=== PATIENT | female | born 1965 | race Caucasian/White ===

== ENCOUNTER → 2017-02-05 | Outpatient (CLI) | payer OTHER | LOC: FIMAGING 11:31 | PROVIDERS: ATTEND Obstetrics & Gynecology | DX: Z12.31 Encounter for screening mammogram for malignant neoplasm of breast (principal) | CPT/HCPCS: G0202 ==

== ENCOUNTER 2017-03-25 20:13 | Observation (INO) | payer OTHER ==
[2017-03-25 20:48] LABS: % IMMATURE GRANULYOCYTES 0.4 % (0.0-1.1); ABSOLUTE IMMATURE GRANULOCYTES 0.07 10^3/uL (0.00-0.10); ADD DIFF? NO; ADD MORPH? NO; ADD SCAN? NO; ATYPICAL LYMPHOCYTE FLAG 10 (0-99); FRAGMENT RBC FLAG 20 (0-99); HEMATOCRIT 26.2 % (38.0-47.0); HEMOGLOBIN 8.3 g/dL (12.6-16.3); LEFT SHIFT FLG 0 (0-99); LIPEMIA HEMOLYSIS FLAG 80 (0-99); MEAN CELL HEMOGLOBIN 26.5 pg (27.9-34.1); MEAN CELL HEMOGLOBIN CONCENTR. 31.7 g/dL (32.4-36.7); MEAN CELL VOLUME 83.7 fL (81.5-99.8); MEAN PLATELET VOLUME 12.7 fL (8.7-11.7); PLATELET CLUMPS FLAG 10 (0-99); PLATELET COUNT 243 10^3/uL (150-400); RED BLOOD CELL COUNT 3.13 10^6/uL (4.18-5.33); RED CELL DISTRIBUTION WIDTH 17.8 % (11.5-15.2)
[2017-03-25 20:59] LABS: ANION GAP 14 mEq/L (8-16); CALCIUM 8.4 mg/dL (8.5-10.4); CARBON DIOXIDE 21 mEq/l (22-31); CHLORIDE 106 mEq/L (97-110); CREATININE 0.7 mg/dL (0.6-1.0); GLOMERULAR FILTRATION RATE > 60; GLUCOSE 117 mg/dL (70-100); POTASSIUM 3.4 mEq/L (3.5-5.2); SODIUM 141 mEq/L (134-144)
--- NOTE | 2017-03-25 21:00 | EDPHY ---
HPI/HX/ROS/PE/MDM Narrative: CHIEF COMPLAINT: Nausea HPI: This patient is a 51 year old female who presents to the Emergency Department following an episode of black, coffee ground hematemesis and one episode of black stool this evening. She reports that she has had intermittent episodes of lightheadedness and nausea over the past few days increasing in severity and frequency. She also reports a feeling of fullness to the epigastric region of her abdomen throughout the past few days. She denies any additional complaints; no urinary complaints, fever or chills, or headache. She denies pertinent medical history. No history of GI bleeding. REVIEW OF SYSTEMS: Aside from elements discussed in the HPI, a comprehensive 10-point review of systems was reviewed and is negative. PMH: Migraines. C-sections. SOCIAL HISTORY: Drinks alcohol rarely. No tobacco use. Recently moved to [place] ; friends visiting from out-of-town are at bedside. PHYSICAL EXAM: General:Patient is alert and in no acute distress. ENT:Eyes are normal to inspection. ENT inspection normal. Neck: Normal inspection. Full range of motion. Respiratory:No respiratory distress. Breath sounds normal bilaterally. Cardiovascular: Regular rate and rhythm. Strong peripheral pulses. Normal cap refill. Abdomen:The abdomen is nontender to palpation. There are no peritoneal signs. There are normal bowel sounds. Back: Normal to inspection. No tenderness to palpation. Skin: Pale. No rash. Warm and dry. Extremities: Normal appearance. Full range of motion. Neuro: Oriented x3. Normal motor function. Normal sensory function. ED Course: This normally healthy 51-year-old female presents with complaints of episodic nausea and lightheadedness over the past three days and one episode each of black stools and black, coffee ground hematemesis today. Upon arrival, she appears pale and is tachycardic at 124, though she is resting comfortably and has a nontender abdomen. Plan for IV and labs. Labs obtained. The patient is anemic: Hemoglobin decreased at 8.3 as compared to 11.3 in January. Hematocrit decreased to 26.2 as compared to 36.2 in January. Will proceed with blood type and screen pending admission. IV established. 2L IV NS and 40mg IV Pantoprazole administered. I discussed with the patient that her labs are suggestive of an acute GI bleed that will require admission for further evaluation by gastroenterology. She is agreeable to this. Heart rate has improved to 79 following administration of fluids. 2121: Consultation with Dr. Davenport, life advisor, who is aware of the case and will consult following admission. 2125: Consultation with Dr. Yenifer King, hospitalist, who accepts admission. MDM: This patient presents with severe likely upper GI bleed. She is hemodynamically stable and responding well to IV fluids. She requires hospitalization for volume replacement and urgent endoscopy. - Data Points Laboratory Results: Laboratory Results 03/25/17 20:36 03/25/17 20:36 03/25/17 03/25/17 03/25/17 20:36 20:36 20:36 WBC RBC Hgb Hct MCV MCH MCHC RDW Plt Count MPV Neut % (Auto) Lymph % (Auto) Garvin % (Auto) Eos % (Auto) Baso % (Auto) Nucleat RBC Rel Count Absolute Neuts (auto) Absolute Lymphs (auto) Absolute Monos (auto) Absolute Eos (auto) Absolute Basos (auto) Absolute Nucleated RBC Immature Gran % Immature Gran # PT 14.8 SEC SEC (12.0-15.0) INR 1.16 (0.83-1.16) APTT 23.8 SEC SEC (23.0-38.0) Sodium Potassium Chloride Carbon Dioxide Anion Gap BUN Creatinine Estimated GFR Glucose Calcium Total Bilirubin 0.6 mg/dL mg/dL (0.1-1.4) Conjugated Bilirubin 0.3 mg/dL mg/dL (0.0-0.5) Unconjugated Bilirubin 0.3 mg/dL mg/dL (0.0-1.1) AST 24 IU/L IU/L (14-46) ALT 21 IU/L IU/L (9-52) Alkaline Phosphatase 36 IU/L L IU/L (38-126) Total Protein 6.3 g/dL g/dL (6.3-8.2) Albumin 3.9 g/dL g/dL (3.5-5.0) Lipase 58.0 IU/L IU/L (23-300) Beta HCG, Qual Patient ABO/Rh Pending Antibody Screen Pending 03/25/17 03/25/17 03/25/17 20:36 20:36 20:36 WBC 15.94 10^3/uL H 10^3/uL (3.80-9.50) RBC 3.13 10^6/uL L 10^6/uL (4.18-5.33) Hgb 8.3 g/dL L g/dL (12.6-16.3) Hct 26.2 % L % (38.0-47.0) MCV 83.7 fL fL (81.5-99.8) MCH 26.5 pg L pg (27.9-34.1) MCHC 31.7 g/dL L g/dL (32.4-36.7) RDW 17.8 % H % (11.5-15.2) Plt Count 243 10^3/uL 10^3/uL (150-400) MPV 12.7 fL H fL (8.7-11.7) Neut % (Auto) 78.9 % H % (39.3-74.2) Lymph % (Auto) 15.7 % % (15.0-45.0) Garvin % (Auto) 3.9 % L % (4.5-13.0) Eos % (Auto) 0.7 % % (0.6-7.6) Baso % (Auto) 0.4 % % (0.3-1.7) Nucleat RBC Rel Count 0.0 % % (0.0-0.2) Absolute Neuts (auto) 12.58 10^3/uL H 10^3/uL (1.70-6.50) Absolute Lymphs (auto) 2.50 10^3/uL 10^3/uL (1.00-3.00) Absolute Monos (auto) 0.62 10^3/uL 10^3/uL (0.30-0.80) Absolute Eos (auto) 0.11 10^3/uL 10^3/uL (0.03-0.40) Absolute Basos (auto) 0.06 10^3/uL 10^3/uL (0.02-0.10) Absolute Nucleated RBC 0.00 10^3/uL 10^3/uL (0-0.01) Immature Gran % 0.4 % % (0.0-1.1) Immature Gran # 0.07 10^3/uL 10^3/uL (0.00-0.10) PT INR APTT Sodium 141 mEq/L mEq/L (134-144) Potassium 3.4 mEq/L L mEq/L (3.5-5.2) Chloride 106 mEq/L mEq/L (97-110) Carbon Dioxide 21 mEq/l L mEq/l (22-31) Anion Gap 14 mEq/L mEq/L (8-16) BUN 50 mg/dL H mg/dL (7-23) Creatinine 0.7 mg/dL mg/dL (0.6-1.0) Estimated GFR > 60 Glucose 117 mg/dL H mg/dL (70-100) Calcium 8.4 mg/dL L mg/dL (8.5-10.4) Total Bilirubin Conjugated Bilirubin Unconjugated Bilirubin AST ALT Alkaline Phosphatase Total Protein Albumin Lipase Beta HCG, Qual NEGATIVE Patient ABO/Rh Antibody Screen Medications Given: Discontinued Medications Sodium Chloride (Ns) 1,000 mls @ 0 mls/hr IV ONCE ONE PRN Reason: Wide Open Stop: 03/25/17 21:04 Last Admin: 03/25/17 20:36 Dose: 1,000 mls General Time Seen by Provider: 03/25/17 20:53 Initial Vital Signs: Initial Vital Signs Temperature (C) 36.4 C 03/25/17 20:16 Heart Rate 124 H 03/25/17 20:16 Respiratory Rate 16 03/25/17 20:16 Blood Pressure 98/56 L 03/25/17 20:16 O2 Sat (%) 100 03/25/17 20:16 O2 Delivery Mode Room Air Allergies/Adverse Reactions: hydrocodone Allergy (Verified 03/25/17 20:19) Penicillins Allergy (Verified 03/25/17 20:19) tetanus and diphtheria toxoids Allergy (Verified 03/25/17 20:19) Home Medications: Medication Instructions Recorded Cholecalciferol Vit D3 [Vitamin D3 1,000 units PO DAILY 03/25/17 (*)] Eletriptan HBr [Relpax] 40 mg PO DAILY PRN 03/25/17 Ferrous Gluconate 324 mg PO DAILY 03/25/17 Naproxen Sod/Diphenhydramine 1 each PO HS PRN 03/25/17 [Aleve Pm Caplet] Naproxen Sodium [Aleve 220 MG (*)] 220 mg PO DAILY 03/25/17 Departure - Departure Disposition: [facility] Inpatient Acute Clinical Impression: GI bleed Qualifiers: GI bleed type/associated pathology: unspecified gastrointestinal hemorrhage type Qualified Code(s): K92.2 - Gastrointestinal hemorrhage, unspecified Condition: Fair Report Scribed for: Raymon Angel Report Scribed by: Gisel Beverly Date of Report: 03/25/17 Time of Report: 20:57 Physician Review and Approval Statement: Portions of this note were transcribed by an ED scribe. I personally performed the history, physical exam, and medical decision making; and confirm the accuracy of the information in the transcribed note.
[2017-03-25] MEDS ORDERED: NS 1,000 ML IV ONE ×2 (21:03→21:12)
[2017-03-25 21:16] LABS: ALBUMIN 3.9 g/dL (3.5-5.0); BILIRUBIN,TOTAL 0.6 mg/dL (0.1-1.4); BILIRUBIN-CONJUGATED 0.3 mg/dL (0.0-0.5); BILIRUBIN-UNCONJUGATED 0.3 mg/dL (0.0-1.1); TOTAL PROTEIN 6.3 g/dL (6.3-8.2)
[2017-03-25 21:19] LABS: INR 1.16 (0.83-1.16); PROTIME(PATIENT) 14.8 SEC (12.0-15.0)
[2017-03-25 21:20] LABS: APTT 23.8 SEC (23.0-38.0)
[2017-03-25] MEDS ORDERED: PANTOPRAZOLE SODIUM 80 MG in NS 100 ML IV ONE ×2 (21:21→22:00)
[2017-03-25] MEDS ORDERED: ONDANSETRON 4 MG/2 ML VIAL IVP PRN (22:45)
[2017-03-25] MEDS ORDERED: PROTOCOL MAGNESIUM 1 DOSE IV PRN (22:47)
[2017-03-25] MEDS ORDERED: PROTOCOL POTASSIUM 1 DOSE MISC PRN (22:47)
--- NOTE | 2017-03-25 22:59 | PDGENHP ---
History and Physical - Chief Complaint melena, coffee ground emesis - History of Present Illness Patient is a 51 year old female with no significant pmh who presents to the ED with complaint of dizziness and black stool. Patient states she began to feel unwell about 2 days ago, with generalized fatigue, epigastric bloating/ discomfort and bloating. Over the course of that day these symptoms became associated with dizziness, especially when moving from a sitting to standing position and nausea. All of these symptoms progressed through yesterday and today at around 4pm, she had a moderately large volume tarry black stool. Immediately following this she also had one episode of black/coffee ground emesis. She then felt an intense dizziness, clammy, cold, and was able to get back into her bed without actually passing out/syncopizing. Her friend then came to her house, found her feeling very weak and dizzy, so they came to the ED for further evaluation. Patient does report intermittent aleve use for musculoskeletal pain relief. She reports increased use (2 tablets twice a day) over the past 2 days for new foot pain, but prior to this had only had 1-2 tablets once a week. She reports very rare alcohol use, none recently. She has had a normal colonoscopy within the last 1 year, but has never had an EGD. On arrival to the ED, patient was afebrile, but tachycardic and slightly hypotensive. She was given 3 L NS IVF resuscitation with improvement in her VS. Labs were then obtained and were significant for anemia (Hb had dropped about 3 g from previous labs in 01/2017), elevated BUN, normal coags. Abdominal x-ray was unremarkable. She was initiated on a PPI drip and admitted for further management. History Information - Allergies/Home Medication List Allergies/Adverse Reactions: hydrocodone Allergy (Verified 03/25/17 20:19) Penicillins Allergy (Verified 03/25/17 20:19) tetanus and diphtheria toxoids Allergy (Verified 03/25/17 20:19) Home Medications: Cholecalciferol Vit D3 [Vitamin D3 (*)] 1,000 units PO DAILY 03/25/17 [Last Taken 03/22/17] Eletriptan HBr [Relpax] 40 mg PO DAILY PRN 03/25/17 [Last Taken Unknown] Ferrous Gluconate 324 mg PO DAILY 03/25/17 [Last Taken 03/22/17] Naproxen Sod/Diphenhydramine [Aleve Pm Caplet] 1 each PO HS PRN 03/25/17 [Last Taken 03/23/17] Naproxen Sodium [Aleve 220 MG (*)] 220 mg PO DAILY 03/25/17 [Last Taken 03/25/17 ] I have personally reviewed and updated: family history, medical history, social history, surgical history - Past Medical History Additional medical history: Raynaud's - Surgical History Additional surgical history: several orthopedic surgeries. x 2. fibroidectomy - Family History Additional family history: MGF: CHF - Social History Smoking Status: Never smoked Alcohol Use: Rarely Drug Use: None Additional social history: Patient recently moved to [place] from [place]. Currently lives alone, has 2 children. Review of Systems ROS: 10pt was reviewed & negative except for what was stated in HPI & below Physical Exam Temp Pulse Resp BP Pulse Ox 36.4 C 84 18 105/73 100 03/25/17 20:16 03/25/17 22:28 03/25/17 22:28 03/25/17 22:28 03/25/17 22:28 Constitutional: no apparent distress, appears nourished, not in pain, other ( appears pale) Eyes: PERRL, anicteric sclera, EOMI, pale conjunctiva Ears, Nose, Mouth, Throat: moist mucous membranes, hearing normal, ears appear normal, no oral mucosal ulcers Cardiovascular: regular rate and rhythym, no murmur, rub, or gallop, pulses symmetric bilaterally, tachycardia, No JVD, No edema Peripheral Pulses: 2+: dorsalis-pedis (R), dorsalis-pedis (L) Respiratory: no respiratory distress, no rales or rhonchi, clear to auscultation Gastrointestinal: normoactive bowel sounds, soft, non-tender abdomen, no palpable masses Genitourinary: no bladder fullness, no bladder tenderness Skin: warm, normal color, no rashes or abrasions, no fluctuance, no induration, No mottled Musculoskeletal: full muscle strength, no muscle tenderness, normal joint ROM, no joint effusions Neurologic: AAOx3, sensation intact bilaterally, CN II-XII Intact, No weakness, No numbness, No facial droop Psychiatric: interacting appropriately, not anxious, not encephalopathic, thought process linear Lab Data & Imaging Review 03/25/17 20:36 03/25/17 20:36 WBC 15.94 10^3/uL (3.80-9.50) H 03/25/17 20:36 RBC 3.13 10^6/uL (4.18-5.33) L 03/25/17 20:36 Hgb 8.3 g/dL (12.6-16.3) L 03/25/17 20:36 Hct 26.2 % (38.0-47.0) L 03/25/17 20:36 MCV 83.7 fL (81.5-99.8) 03/25/17 20:36 MCH 26.5 pg (27.9-34.1) L 03/25/17 20:36 MCHC 31.7 g/dL (32.4-36.7) L 03/25/17 20:36 RDW 17.8 % (11.5-15.2) H 03/25/17 20:36 Plt Count 243 10^3/uL (150-400) 03/25/17 20:36 MPV 12.7 fL (8.7-11.7) H 03/25/17 20:36 Neut % (Auto) 78.9 % (39.3-74.2) H 03/25/17 20:36 Lymph % (Auto) 15.7 % (15.0-45.0) 03/25/17 20:36 Mcnairy % (Auto) 3.9 % (4.5-13.0) L 03/25/17 20:36 Eos % (Auto) 0.7 % (0.6-7.6) 03/25/17 20:36 Baso % (Auto) 0.4 % (0.3-1.7) 03/25/17 20:36 Nucleat RBC Rel Count 0.0 % (0.0-0.2) 03/25/17 20:36 Absolute Neuts (auto) 12.58 10^3/uL (1.70-6.50) H 03/25/17 20:36 Absolute Lymphs (auto) 2.50 10^3/uL (1.00-3.00) 03/25/17 20:36 Absolute Monos (auto) 0.62 10^3/uL (0.30-0.80) 03/25/17 20:36 Absolute Eos (auto) 0.11 10^3/uL (0.03-0.40) 03/25/17 20:36 Absolute Basos (auto) 0.06 10^3/uL (0.02-0.10) 03/25/17 20:36 Absolute Nucleated RBC 0.00 10^3/uL (0-0.01) 03/25/17 20:36 Immature Gran % 0.4 % (0.0-1.1) 03/25/17 20:36 Immature Gran # 0.07 10^3/uL (0.00-0.10) 03/25/17 20:36 PT 14.8 SEC (12.0-15.0) 03/25/17 20:36 INR 1.16 (0.83-1.16) 03/25/17 20:36 APTT 23.8 SEC (23.0-38.0) 03/25/17 20:36 Sodium 141 mEq/L (134-144) 03/25/17 20:36 Potassium 3.4 mEq/L (3.5-5.2) L 03/25/17 20:36 Chloride 106 mEq/L (97-110) 03/25/17 20:36 Carbon Dioxide 21 mEq/l (22-31) L 03/25/17 20:36 Anion Gap 14 mEq/L (8-16) 03/25/17 20:36 BUN 50 mg/dL (7-23) H 03/25/17 20:36 Creatinine 0.7 mg/dL (0.6-1.0) 03/25/17 20:36 Estimated GFR > 60 03/25/17 20:36 Glucose 117 mg/dL (70-100) H 03/25/17 20:36 Calcium 8.4 mg/dL (8.5-10.4) L 03/25/17 20:36 Total Bilirubin 0.6 mg/dL (0.1-1.4) 03/25/17 20:36 Conjugated Bilirubin 0.3 mg/dL (0.0-0.5) 03/25/17 20:36 Unconjugated Bilirubin 0.3 mg/dL (0.0-1.1) 03/25/17 20:36 AST 24 IU/L (14-46) 03/25/17 20:36 ALT 21 IU/L (9-52) 03/25/17 20:36 Alkaline Phosphatase 36 IU/L (38-126) L 03/25/17 20:36 Total Protein 6.3 g/dL (6.3-8.2) 03/25/17 20:36 Albumin 3.9 g/dL (3.5-5.0) 03/25/17 20:36 Lipase 58.0 IU/L (23-300) 03/25/17 20:36 Beta HCG, Qual NEGATIVE 03/25/17 20:36 Patient ABO/Rh O POSITIVE 03/25/17 20:36 Antibody Screen NEGATIVE 03/25/17 20:36 Crossmatch IS Only See Detail 03/25/17 20:36 Visualized and Interpreted imaging results: Yes Interpretation: AXR: no evidence of free air/perforation Assessment & Plan Assessment: Patient is a 51 year old female with no significant pmh who presents to the ED with complaint of dizziness, fatigue, dyspepsia and one episode of melena and coffee ground emesis. ED evaluation reveals tachycardia, anemia, consistent with acute likely upper GI bleed. Plan: # acute upper GI bleed On arrival patient was initially symptomatic, with tachycardia and hypotension. This has improved with IVF resuscitation, however, she still feels quiet weak and is orthostatic. Will transfuse 1 unit prbc now. GI has been consulted and will plan for EGD evaluation in AM. - NPO - follow CBC q4h - maintain adequate IV access - cont Pantoprazole gtt - f/u GI recs # acute blood loss anemia Likely due to above. Will transfuse and monitor cbc q4h. # leukocytosis Although patient meets SIRS criteria with tachycardia and leukocytosis on presentation, there is no sign of infection; likely the result of acute blood loss anemia/reactive leukocytosis. Will trend cbc, monitor for localizing signs of infection. # hypokalemia Replete per protocol. # dispo: admit to observation status # gen; NPO DVT ppx: low risk Full code
[2017-03-25] MEDS: PANTOPRAZOLE SODIUM 80 MG in NS 100 ML IV SCH (23:48)
[2017-03-26] MEDS: POTASSIUM Cl (KCl) 100 ML IV SCH ×3 (00:11→04:00)
[2017-03-26 00:48] LABS: % IMMATURE GRANULYOCYTES 0.6 % (0.0-1.1); ABSOLUTE IMMATURE GRANULOCYTES 0.07 10^3/uL (0.00-0.10); ADD DIFF? NO; ADD MORPH? YES; ADD SCAN? NO; ATYPICAL LYMPHOCYTE FLAG 0 (0-99); FRAGMENT RBC FLAG 20 (0-99); HEMATOCRIT 19.6 % (38.0-47.0); HEMOGLOBIN 6.4 g/dL (12.6-16.3); LEFT SHIFT FLG 0 (0-99); LIPEMIA HEMOLYSIS FLAG 80 (0-99); MEAN CELL HEMOGLOBIN CONCENTR. 32.7 g/dL (32.4-36.7); MEAN CELL VOLUME 82.7 fL (81.5-99.8); MEAN PLATELET VOLUME 12.9 fL (8.7-11.7); PLATELET CLUMPS FLAG 0 (0-99); PLATELET COUNT 161 10^3/uL (150-400); RED BLOOD CELL COUNT 2.37 10^6/uL (4.18-5.33)
[2017-03-26 01:24] LABS: HYPOCHROMIA 1+; PLATELET ESTIMATE ADEQUATE (ADEQ); POLYCHROMASIA 1+; TOXIC GRANULATION PRESENT
[2017-03-26] MEDS: PANTOPRAZOLE SODIUM 80 MG in NS 100 ML IV SCH (04:00)
[2017-03-26] MEDS ORDERED: ALBUMIN 5% 250 ML BOTTLE IV ONE (09:29)
[2017-03-26] MEDS ORDERED: CALCIUM CHLORIDE 1 GM/10 ML INJ ONE (09:29)
[2017-03-26] MEDS ORDERED: PROPOFOL 200 MG/20 ML VIAL ONE (09:30)
[2017-03-26] MEDS ORDERED: MIDAZOLAM 2 MG/2 ML VIAL ONE (09:35)
[2017-03-26] MEDS ORDERED: METOCLOPRAMIDE 10 MG/2 ML VIAL ONE (09:59)
[2017-03-26] MEDS ORDERED: ROCURONIUM 50 MG/5 ML VIAL ONE (09:59)
[2017-03-26] MEDS ORDERED: LIDOCAINE 2% 5 ML SDV ONE (09:59)
[2017-03-26] MEDS ORDERED: ONDANSETRON 4 MG/2 ML VIAL ONE (09:59)
[2017-03-26] MEDS ORDERED: fentaNYL 100 MCG/2 ML INJ ONE (09:59)
[2017-03-26] MEDS ORDERED: SUGAMMADEX SODIUM 200 MG/2 ML VIAL IVP ONE (09:59)
--- NOTE | 2017-03-26 11:40 | HOSPPROG ---
Hospitalist Progress Note Assessment/Plan: 51 yo f w UGIB 2/2 gastric ulcers UGIB: trigger likely NSAIDS minimal alcohol, no tobacco no active bleeding on egd change to bid oral ppi clear liquid diet acute blood loss anemia: give add'l unit packed red cells HD stable chronic anemia: baseline hg 11 outpt workup proph: scd's and ppi active bleeding precludes LMWH dispo: pending Subjective: case discussed w bobby fernandez Objective: Vital Signs Temp Pulse Resp BP Pulse Ox 36.6 C 81 17 89/54 L 93 03/26/17 02:08 03/26/17 04:00 03/26/17 04:00 03/26/17 04:00 03/26/17 04:00 03/25/17 03/26/17 03/27/17 05:59 05:59 05:59 Intake Total 2009 Balance 2009 PT 14.8 SEC (12.0-15.0) 03/25/17 20:36 INR 1.16 (0.83-1.16) 03/25/17 20:36 - Physical Exam Constitutional: no apparent distress, appears nourished Eyes: PERRL, anicteric sclera Ears, Nose, Mouth, Throat: moist mucous membranes, hearing normal Cardiovascular: regular rate and rhythym, no murmur, rub, or gallop Respiratory: no respiratory distress, no rales or rhonchi, No inspiratory crackles Gastrointestinal: normoactive bowel sounds, soft, non-tender abdomen, No guarding, No rebound Genitourinary: no bladder fullness, No glover in urethra Skin: warm, normal color Musculoskeletal: full muscle strength Neurologic: AAOx3 ICD10 Worksheet Patient Problems: Problems Problem Status Onset GI bleed Acute
[2017-03-26] MEDS ORDERED: Eletriptan Hbr [Relpax] 40 MG PO PRN (11:41)
[2017-03-26] MEDS ORDERED: PANTOPRAZOLE SODIUM 40 MG TAB PO SCH (11:45)
[2017-03-26] MEDS ORDERED: diphenhydrAMINE 25 MG CAP PO PRN (12:47)
[2017-03-26 14:20] LABS: ALANINE AMINOTRANSFERASE 21 IU/L (9-52); ALBUMIN 2.6 g/dL (3.5-5.0); ALKALINE PHOSPHATASE 28 IU/L (38-126); ANION GAP 9 mEq/L (8-16); ASPARTATE AMINOTRANSFERASE 17 IU/L (14-46); BILIRUBIN,TOTAL 0.8 mg/dL (0.1-1.4); CALCIUM 6.9 mg/dL (8.5-10.4); CARBON DIOXIDE 19 mEq/l (22-31); CHLORIDE 113 mEq/L (97-110); CREATININE 0.7 mg/dL (0.6-1.0); GLOMERULAR FILTRATION RATE > 60; GLUCOSE 82 mg/dL (70-100); MAGNESIUM 1.6 mg/dL (1.6-2.3); SODIUM 141 mEq/L (134-144); TOTAL PROTEIN 4.8 g/dL (6.3-8.2)
[2017-03-26 14:27] LABS: APTT 27.5 SEC (23.0-38.0); INR 1.31 (0.83-1.16); PROTIME(PATIENT) 16.3 SEC (12.0-15.0)
[2017-03-26 14:32] LABS: % IMMATURE GRANULYOCYTES 0.3 % (0.0-1.1); ABSOLUTE IMMATURE GRANULOCYTES 0.03 10^3/uL (0.00-0.10); ADD DIFF? NO; ADD MORPH? NO; ADD SCAN? NO; ATYPICAL LYMPHOCYTE FLAG 0 (0-99); FRAGMENT RBC FLAG 30 (0-99); HEMATOCRIT 22.2 % (38.0-47.0); HEMOGLOBIN 7.2 g/dL (12.6-16.3); LEFT SHIFT FLG 0 (0-99); LIPEMIA HEMOLYSIS FLAG 80 (0-99); MEAN CELL HEMOGLOBIN 27.5 pg (27.9-34.1); MEAN CELL HEMOGLOBIN CONCENTR. 32.4 g/dL (32.4-36.7); MEAN CELL VOLUME 84.7 fL (81.5-99.8); MEAN PLATELET VOLUME 12.5 fL (8.7-11.7); PLATELET CLUMPS FLAG 10 (0-99); PLATELET COUNT 145 10^3/uL (150-400); RED BLOOD CELL COUNT 2.62 10^6/uL (4.18-5.33); RED CELL DISTRIBUTION WIDTH 17.3 % (11.5-15.2)
[2017-03-26 16:03] LABS: HEMATOCRIT 26.6 % (38.0-47.0); HEMOGLOBIN 8.8 g/dL (12.6-16.3)
--- NOTE | 2017-03-26 16:59 | SOAPPROG ---
SOAP Progress Note Assessment/Plan: Assessment:EGD reveals 3 gastric ulcers, one with signs of recent bleeding. Ulcers appear benign. APC apllied to any potential bleeding sites MASON test taken. Plan:Observe for rebleeding. 12 weeks of PPIs. Avoid NSAIDs. 03/26/17 16:58 Objective: Vital Signs Temp Pulse Resp BP Pulse Ox 36.5 C 86 18 114/63 98 03/26/17 12:00 03/26/17 15:44 03/26/17 15:44 03/26/17 15:44 03/26/17 15:44 Laboratory Results 03/26/17 15:51 03/26/17 06:00 03/25/17 03/26/17 03/27/17 05:59 05:59 05:59 Intake Total 2009 140 Output Total 900 Balance 2009 - PT 16.3 SEC (12.0-15.0) H 03/26/17 06:00 INR 1.31 (0.83-1.16) H 03/26/17 06:00 ICD10 Worksheet Patient Problems: Problems Problem Status Onset GI bleed Acute
[2017-03-26] MEDS ORDERED: MAGNESIUM SULF 1 GM/DEXTROSE 100 ML IV ONE (17:15)
[2017-03-26 19:25] LABS: POTASSIUM 4.2 mEq/L (3.5-5.2)
[2017-03-26] MEDS: PANTOPRAZOLE SODIUM 40 MG TAB PO SCH (20:37)
--- NOTE | 2017-03-27 04:11 | GPN ---
[f rep st] PROCEDURE NOTE PROCEDURE PERFORMED: 1. Gastroscopy with argon plasma coagulation. 2. Biopsies. INDICATIONS: The patient is a 51-year-old female, admitted with signs and symptoms of upper GI blee ding, including coffee-grounds emesis, melena, and a hemoglobin drop from a baseline of 11.3 two mon ths ago, to 6.4 on admission. She has been using NSAIDs quite regularly recently. Has no previous history of peptic disease. Gastroscopy is being performed to evaluate. DESCRIPTION OF PROCEDURE: After proper consent was obtained, patient was intubated and placed in th e left lateral decubitus position. Video gastroscope was introduced through the mouth, down esophagus, into stomach, past the pylorus, into the duodenum. FINDINGS: 1. Esophagus normal. 2. Fundus is normal. 3. In the antrum are 3 ulcers between 5-10 mm in diameter. All are with smooth edges and benign in appearance. Two have clean white eschars. The third has some redness in it. 4. The duodenum is normal. Biopsies were taken to rule out Helicobacter pylori, and then argon plasma coagulation was used to c auterize all of the potential bleeding sites and the ulcers. At this point, instrument was removed. The patient tolerated procedure well, and was returned to [facility] in stable condition. RECOMMENDATIONS: 1. Would treat Helicobacter pylori if present. 2. Patient should be on a 12-week course of proton pump inhibitors. 3. Patient should avoid nonsteroidals. 4. If patient has signs and symptoms of rebleeding, this procedure can be repeated. 5. Transfusions as per hospitalist team. 6. Disposition as per hospitalist team. /[id number]/MODL
[2017-03-27] MEDS: ACETAMINOPHEN 325 MG TAB PO PRN ×3 (04:21→17:20)
[2017-03-27] MEDS: ONDANSETRON DISINTEGRATING 4 MG TAB PO PRN ×2 (04:22→11:56)
[2017-03-27 04:34] LABS: % IMMATURE GRANULYOCYTES 0.6 % (0.0-1.1); ABSOLUTE IMMATURE GRANULOCYTES 0.05 10^3/uL (0.00-0.10); ADD DIFF? NO; ADD MORPH? NO; ADD SCAN? NO; ATYPICAL LYMPHOCYTE FLAG 0 (0-99); FRAGMENT RBC FLAG 20 (0-99); HEMATOCRIT 26.7 % (38.0-47.0); HEMOGLOBIN 9.1 g/dL (12.6-16.3); LEFT SHIFT FLG 0 (0-99); LIPEMIA HEMOLYSIS FLAG 90 (0-99); MEAN CELL HEMOGLOBIN 28.1 pg (27.9-34.1); MEAN CELL HEMOGLOBIN CONCENTR. 34.1 g/dL (32.4-36.7); MEAN CELL VOLUME 82.4 fL (81.5-99.8); MEAN PLATELET VOLUME 12.8 fL (8.7-11.7); PLATELET CLUMPS FLAG 10 (0-99); PLATELET COUNT 136 10^3/uL (150-400); RED BLOOD CELL COUNT 3.24 10^6/uL (4.18-5.33)
[2017-03-27 04:43] LABS: MAGNESIUM 1.4 mg/dL (1.6-2.3)
[2017-03-27 07:52] VITALS: PULSE 77; RESP 18
[2017-03-27] MEDS ORDERED: CHOLECALCIFEROL VIT D3 1,000 UNITS TAB PO SCH (09:00)
[2017-03-27] MEDS: PANTOPRAZOLE SODIUM 40 MG TAB PO SCH ×2 (09:22→19:56)
[2017-03-27] MEDS ORDERED: MAGNESIUM SULF 2 GM/WATER 50 ML IV ONE (10:00)
[2017-03-27] MEDS ORDERED: NS 1,000 ML IV ONE (15:19)
[2017-03-27 16:24] LABS: HEMATOCRIT 29.6 % (38.0-47.0); HEMOGLOBIN 9.7 g/dL (12.6-16.3)
[2017-03-27 16:59] VITALS: BP 105/61; TEMP 97.8; O2SAT 97
--- NOTE | 2017-03-27 21:19 | GDS ---
[f rep st] DISCHARGE SUMMARY DISCHARGE DIAGNOSES: 1. Upper gastrointestinal bleed. 2. Posthemorrhagic anemia. 3. Multiple gastric ulcers. 4. 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 CONSULTATIONS: Dr. Yves Dominguez. PROCEDURES: Esophagogastroduodenoscopy and transfusion of packed red cells, 2 units. HOSPITAL COURSE: The patient is a 51-year-old woman who takes ongoing therapy with Aleve. She came in at this time symptomatic from anemia, and having coffee-grounds emesis and black stool. She had an initial hemoglobin of 8, and was hemodynamically stable, but her second hemoglobin was at 6.4. She therefore received 2 units of packed red blood cells, as there was evidence of ongoing bleeding. She had upper endoscopy that showed multiple gastric ulcerations, with some evidence of bleeding. She was treated endoscopically, and with proton-pump inhibitors, and did well thereafter. At this time, she is stable for discharge to home. Has stable hemoglobin, stable hemodynamics, no further s igns of bleeding, is eating a soft diet without difficulty. She is prescribed Protonix 40 mg twice daily for 8 weeks. To follow up with Dr. Dominguez in 6-8 weeks. She is also going to take some iron therapy for iron replacement. /[id number]/MODL
== END 2017-03-27 20:02 | disposition home or self-care (01) ==
LOC: INTOOBSV 21:27 → F2N 22:26 → F3E 03-26 17:17
PROVIDERS: ADMIT Hospitalist; ATTEND Hospitalist
PROC: 0W3P8ZZ Control Bleeding in Gastrointestinal Tract, Via Natural or Artificial Opening Endoscopic (ICD-10-PCS; principal; 2017-03-25)
PROC: 0DB74ZX Excision of Stomach, Pylorus, Percutaneous Endoscopic Approach, Diagnostic (ICD-10-PCS; principal; 2017-03-25)
PROC: 30233N1 Transfusion of Nonautologous Red Blood Cells into Peripheral Vein, Percutaneous Approach (ICD-10-PCS; principal; 2017-03-25)
DX: K92.2 Gastrointestinal hemorrhage, unspecified (principal); D50.0 Iron deficiency anemia secondary to blood loss (chronic); K25.9 Gastric ulcer, unspecified as acute or chronic, without hemorrhage or perforation
CPT/HCPCS: 36430; 43239; 43255; 74000; 96361; 96365; 96366; 99285; G0378; P9016; J2250; J2405; J2704; J2765; J3010; J3475; P9041

== ENCOUNTER 2017-04-13 21:33 | Emergency (ER) | payer OTHER ==
--- NOTE | 2017-04-13 22:50 | EDPHY ---
H & P Stated Complaint: blood in stool x1d, recent GI bleed and cautery ~3wk ago Time Seen by Provider: 04/13/17 22:27 HPI/ROS: HPI The patient presents with bright red blood per rectum which began today. She had about 2-3 episodes of bright red blood when she had bowel movements today. This was not clotted and was surrounding her bowel movements. She has not had any dark stools. These episodes were painless. She does not have any abdominal pain. She denies any lightheadedness. She was admitted to the hospital on March 25 for an upper GI bleed which presented with coffee-ground emesis and dark stools. She was taking Aleve at that time. Upper endoscopy was performed which revealed gastric ulcers which were cauterized. She was started on a PPI and iron supplementation. She did require blood transfusion for a drop in her hemoglobin. She is currently taking iron supplementation in her PPI and denies any NSAID use.. REVIEW OF SYSTEMS Constitutional: No fever, no chills. Eyes: No discharge. ENT: No sore throat. Cardiovascular: No chest pain, no palpitations. Respiratory: No cough, no shortness of breath. Gastrointestinal: No abdominal pain, no vomiting. Genitourinary: No hematuria. Musculoskeletal: No back pain. Skin: No rashes. Neurological: No headache. PMHx: Upper GI bleed, gastric ulcers related to NSAID use, IUD in place Soc Hx: Recently moved from [place] PHYSICAL General Appearance: Alert, no distress Eyes: Pupils equal and round no pallor or injection ENT, Mouth: Mucous membranes moist Respiratory: There are no retractions, lungs are clear to auscultation Cardiovascular: Regular rate and rhythm Gastrointestinal: Abdomen is soft and non-tender, no masses, bowel sounds normal Rectal: Several small external hemorrhoids with no active bleeding, no masses, soft brown stool Neurological: A&O, moves all extremities Skin: Warm and dry, no rashes Musculoskeletal: Neck is supple non tender Extremities: symmetrical, full range of motion Psychiatric: Patient is oriented X 3, there is no agitation Source: Patient Exam Limitations: No limitations - Personal History LMP (Females 10-55): IUD In Place Current Tetanus/Diphtheria Vaccine: Yes Current Tetanus Diphtheria and Acellular Pertussis (TDAP): Yes - Medical/Surgical History Hx Asthma: No Hx Chronic Respiratory Disease: No Hx Diabetes: No Hx Cardiac Disease: No Hx Renal Disease: No Hx Cirrhosis: No Hx Alcoholism: No Hx HIV/AIDS: No Hx Splenectomy or Spleen Trauma: No Other PMH: migraines, utrine fibroids, c section x2, rotator cuff, bicep repair , meniscus tear, Reynaud's - Social History Smoking Status: Never smoked Constitutional: Initial Vital Signs Temperature (C) 36.6 C 04/13/17 21:37 Heart Rate 75 04/13/17 21:37 Respiratory Rate 16 04/13/17 21:37 Blood Pressure 107/80 04/13/17 21:37 O2 Sat (%) 100 04/13/17 21:37 O2 Delivery Mode Room Air Allergies/Adverse Reactions: celecoxib [From Celebrex] Allergy (Verified 04/13/17 21:42) Hives hydrocodone Allergy (Verified 04/13/17 21:42) Hives Penicillins Allergy (Verified 04/13/17 21:42) Hives tetanus and diphtheria toxoids Allergy (Verified 04/13/17 21:42) Hives Home Medications: Medication Instructions Recorded Cholecalciferol Vit D3 [Vitamin D3 1,000 units PO DAILY 03/25/17 (*)] Eletriptan HBr [Relpax] 40 mg PO DAILY PRN 03/25/17 Ferrous Gluconate 324 mg PO DAILY 03/25/17 Pantoprazole Sodium [Protonix 40mg 40 mg PO BID #120 tab 03/27/17 (*)] Medical Decision Making Differential Diagnosis: This is a 52-year-old female with recent upper GI bleed due to gastric ulcers, thought to be induced by NSAID use, presenting today with bright red blood per rectum for the last 1 day without any associated symptoms. Differential diagnosis includes lower GI bleed due to bleeding diverticuli, AVM , malignancy, internal hemorrhoids verses brisk upper GI bleed related to gastric ulcers. In the emergency room, labs were checked. CBC is normal, hemoglobin has improved from 9-11. Chem panel is normal. Hemoccult is negative for any bleeding. The patient had no ongoing symptoms in the emergency room. The case was discussed with the tobacco warehouse manager public information coordinator . We agree that this bleeding would be unlikely to be coming from her gastric ulcers which were cauterized. She could have internal hemorrhoids causing the bleeding or other more benign etiology. The patient would like to go home, I feel this is reasonable. She will monitor her symptoms and can return if she is worse in any way. Otherwise she will follow up with Dr. Dominguez her primary tobacco warehouse manager in 2 days. - Data Points Laboratory Results: Laboratory Results 04/13/17 22:40 04/13/17 22:40 04/13/17 04/13/17 04/13/17 22:40 22:40 22:40 WBC 7.56 10^3/uL 10^3/uL (3.80-9.50) RBC 3.95 10^6/uL L 10^6/uL (4.18-5.33) Hgb 11.1 g/dL L g/dL (12.6-16.3) Hct 34.1 % L % (38.0-47.0) MCV 86.3 fL fL (81.5-99.8) MCH 28.1 pg pg (27.9-34.1) MCHC 32.6 g/dL g/dL (32.4-36.7) RDW 16.6 % H % (11.5-15.2) Plt Count 289 10^3/uL 10^3/uL (150-400) MPV 11.4 fL fL (8.7-11.7) Neut % (Auto) 62.5 % % (39.3-74.2) Lymph % (Auto) 26.1 % % (15.0-45.0) [facility] % (Auto) 6.6 % % (4.5-13.0) Eos % (Auto) 3.7 % % (0.6-7.6) Baso % (Auto) 0.8 % % (0.3-1.7) Nucleat RBC Rel Count 0.0 % % (0.0-0.2) Absolute Neuts (auto) 4.73 10^3/uL 10^3/uL (1.70-6.50) Absolute Lymphs (auto) 1.97 10^3/uL 10^3/uL (1.00-3.00) Absolute Monos (auto) 0.50 10^3/uL 10^3/uL (0.30-0.80) Absolute Eos (auto) 0.28 10^3/uL 10^3/uL (0.03-0.40) Absolute Basos (auto) 0.06 10^3/uL 10^3/uL (0.02-0.10) Absolute Nucleated RBC 0.00 10^3/uL 10^3/uL (0-0.01) Immature Gran % 0.3 % % (0.0-1.1) Immature Gran # 0.02 10^3/uL 10^3/uL (0.00-0.10) Sodium 138 mEq/L mEq/L (134-144) Potassium 3.8 mEq/L mEq/L (3.5-5.2) Chloride 105 mEq/L mEq/L (97-110) Carbon Dioxide 21 mEq/l L mEq/l (22-31) Anion Gap 12 mEq/L mEq/L (8-16) BUN 17 mg/dL mg/dL (7-23) Creatinine 0.9 mg/dL mg/dL (0.6-1.0) Estimated GFR > 60 Glucose 83 mg/dL mg/dL (70-100) Calcium 9.1 mg/dL mg/dL (8.5-10.4) Total Bilirubin 0.6 mg/dL mg/dL (0.1-1.4) AST 25 IU/L IU/L (14-46) ALT 28 IU/L IU/L (9-52) Alkaline Phosphatase 53 IU/L IU/L (38-126) Total Protein 6.9 g/dL g/dL (6.3-8.2) Albumin 4.3 g/dL g/dL (3.5-5.0) Stool Occult Bld Scrn NEGATIVE (NEGATIVE) Medications Given: Discontinued Medications Sodium Chloride (Ns) 1,000 mls @ 0 mls/hr IV ONCE ONE PRN Reason: Wide Open Stop: 04/13/17 23:16 Last Admin: 04/13/17 23:15 Dose: 1,000 mls Departure - Departure Disposition: Home, Routine, Self-Care Clinical Impression: Bright red rectal bleeding Condition: Good Instructions: Rectal Bleeding (ED) Additional Instructions: Please call Dr. Dominguez on Sunday to arrange for follow-up. You should return to the emergency room if the bleeding is worse in any way or if you feel lightheaded or dizzy. Referrals: Queenie Suárez MD [Primary Care Provider] - As per Instructions Yves Dominguez MD [[facility] [place] Primary Care Provider] - As per Instructions
[2017-04-13 22:54] LABS: % IMMATURE GRANULYOCYTES 0.3 % (0.0-1.1); ABSOLUTE IMMATURE GRANULOCYTES 0.02 10^3/uL (0.00-0.10); ADD DIFF? NO; ADD MORPH? NO; ADD SCAN? NO; ATYPICAL LYMPHOCYTE FLAG 0 (0-99); FRAGMENT RBC FLAG 0 (0-99); HEMATOCRIT 34.1 % (38.0-47.0); HEMOGLOBIN 11.1 g/dL (12.6-16.3); LEFT SHIFT FLG 0 (0-99); LIPEMIA HEMOLYSIS FLAG 80 (0-99); MEAN CELL HEMOGLOBIN 28.1 pg (27.9-34.1); MEAN CELL HEMOGLOBIN CONCENTR. 32.6 g/dL (32.4-36.7); MEAN CELL VOLUME 86.3 fL (81.5-99.8); MEAN PLATELET VOLUME 11.4 fL (8.7-11.7); PLATELET CLUMPS FLAG 10 (0-99); PLATELET COUNT 289 10^3/uL (150-400); RED BLOOD CELL COUNT 3.95 10^6/uL (4.18-5.33); RED CELL DISTRIBUTION WIDTH 16.6 % (11.5-15.2)
[2017-04-13 23:04] LABS: ALANINE AMINOTRANSFERASE 28 IU/L (9-52); ALBUMIN 4.3 g/dL (3.5-5.0); ALKALINE PHOSPHATASE 53 IU/L (38-126); ANION GAP 12 mEq/L (8-16); ASPARTATE AMINOTRANSFERASE 25 IU/L (14-46); BILIRUBIN,TOTAL 0.6 mg/dL (0.1-1.4); CALCIUM 9.1 mg/dL (8.5-10.4); CARBON DIOXIDE 21 mEq/l (22-31); CHLORIDE 105 mEq/L (97-110); CREATININE 0.9 mg/dL (0.6-1.0); GLOMERULAR FILTRATION RATE > 60; GLUCOSE 83 mg/dL (70-100); POTASSIUM 3.8 mEq/L (3.5-5.2); SODIUM 138 mEq/L (134-144); TOTAL PROTEIN 6.9 g/dL (6.3-8.2)
[2017-04-13] MEDS ORDERED: NS 1,000 ML IV ONE (23:15)
[2017-04-13 23:18] VITALS: TEMP 98.4
[2017-04-14 00:25] VITALS: BP 121/67; PULSE 66; RESP 16; O2SAT 96
== END 2017-04-14 00:24 | disposition home or self-care (01) ==
DX: K62.5 Hemorrhage of anus and rectum (principal)

== ENCOUNTER → 2018-02-06 | Outpatient (CLI) | payer OTHER | LOC: FIMAGING 13:47 | PROVIDERS: ATTEND Family Medicine | DX: Z12.31 Encounter for screening mammogram for malignant neoplasm of breast (principal) ==

== ENCOUNTER → 2018-02-12 | Outpatient (CLI) | payer OTHER ==
[~2018-02-12] MED LIST: IOPAMIDOL (ISOVUE-300) 150 ML BTL ONE
== END ==
LOC: FIMAGING 08:55
PROVIDERS: ATTEND Urology
DX: R31.9 Hematuria, unspecified (principal); D25.9 Leiomyoma of uterus, unspecified; Z97.5 Presence of (intrauterine) contraceptive device
CPT/HCPCS: Q9967

== ENCOUNTER → 2018-02-13 | Outpatient (CLI) | payer OTHER | LOC: FIMAGING 08:00 | PROVIDERS: ATTEND Obstetrics & Gynecology Gynecology | DX: R92.2 Inconclusive mammogram (principal) ==